=== PATIENT | male | born 1980 | race Caucasian/White ===

== ENCOUNTER 2022-01-16 13:14 | Observation (INO) | payer OTHER ==
[2022-01-16] MEDS ORDERED: LORazepam 2 MG/ML INJ IV STA (13:22)
[2022-01-16] MEDS ORDERED: NITROGLYCERIN OINT 1 INCH/GM PACKET TOPICAL STA (13:24)
--- NOTE | 2022-01-16 13:46 | ED ---
General Adult HPI - General Chief complaint: Chest Pain Stated complaint: Chest Pain Time Seen by Provider: 01/16/22 13:18 Source: patient, EMS, RN notes reviewed Mode of arrival: EMS Limitations: no limitations - History of Present Illness Initial comments: Patient is a pleasant 41-year-old male presenting to the emergency Department with chest pressure and concern for seizures. Patient is trying to get off alcohol and did go [place] today. Last drink was around 9 this morning. Patient has been having some pressure in his chest recently, several days waxing and waning. Discomfort is 4/10 at this time. Minimal associated dyspnea. A martinez has had some nausea however is unclear if this is from withdrawals or from chest discomfort. No diaphoresis. Patient believes she may have had 2 or 3 seizures over the past 10 days. Patient states he has had history of seizures previously with alcohol discontinuation. Patient states sometimes the seizures are just feeling funny and other times he actually loses consciousness. Denies any street drug use. - Related Data Home Medications Medication Instructions Recorded Confirmed Acetaminophen Tab [Tylenol Tab] 500 mg PO Q6H PRN 01/16/22 01/16/22 Famotidine [Pepcid] 20 mg PO BID 01/16/22 01/16/22 Folic Acid 1 mg PO DAILY 01/16/22 01/16/22 Loratadine 10 mg PO DAILY 01/16/22 01/16/22 Pantoprazole [Protonix] 40 mg PO BID 01/16/22 01/16/22 traZODone HCL 150 mg PO HS 01/16/22 01/16/22 Allergies Allergy/AdvReac Type Severity Reaction Status Date / Time No Known Allergies Allergy Verified 01/16/22 13:52 Review of Systems ROS Statement: Those systems with pertinent positive or pertinent negative responses have been documented in the HPI. ROS Other: All systems not noted in ROS Statement are negative. Constitutional: Denies: fever Eyes: Denies: eye pain ENT: Denies: ear pain Respiratory: Reports: as per HPI. Denies: cough Cardiovascular: Reports: as per HPI, chest pain Endocrine: Denies: fatigue Gastrointestinal: Denies: abdominal pain Genitourinary: Denies: dysuria Musculoskeletal: Denies: back pain Skin: Denies: rash Neurological: Reports: as per HPI. Denies: headache, weakness, confusion Past Medical History Past Medical History: GERD/Reflux History of Any Multi-Drug Resistant Organisms: None Reported Past Surgical History: No Surgical Hx Reported Past Psychological History: No Psychological Hx Reported Past Alcohol Use History: Abuse, Daily Past Drug Use History: None Reported General Exam Limitations: no limitations General appearance: alert, in no apparent distress Head exam: Present: atraumatic, normocephalic Eye exam: Present: normal appearance, PERRL, EOMI ENT exam: Present: normal oropharynx Neck exam: Present: normal inspection. Absent: tenderness Respiratory exam: Present: normal lung sounds bilaterally. Absent: chest wall tenderness Cardiovascular Exam: Present: regular rate, normal rhythm Expanded Peripheral pulses: 2+: Radial (R), Radial (L), Posterior Tibialis (R), Posterior Tibialis (L) GI/Abdominal exam: Present: soft. Absent: tenderness Extremities exam: Present: normal inspection. Absent: pedal edema, calf tenderness Neurological exam: Present: alert, oriented X3, CN II-XII intact. Absent: motor sensory deficit Expanded Neurological exam: Present: protecting the airway Speech: Present: fluid speech Cranial nerves: EOM's Intact: Normal Motor strength exam: RUE: 5, LUE: 5, RLE: 5, LLE: 5 Eye Response: (4) open spontaneously Motor Response: (6) obeys commands Verbal Response: (5) oriented Psychiatric exam: Present: normal affect, normal mood Skin exam: Present: normal color Course Vital Signs 01/16/22 13:36 Temperature 98.4 F Pulse Rate 92 Respiratory 16 Rate Blood Pressure 138/92 O2 Sat by Pulse 95 Oximetry EKG Findings - EKG Comments: EKG Findings:: Sinus tachycardia 102. HI 15. QRS 105. QT 346. QTc 405. Normal axis. Normal QRS. Repolarization changes. Medical Decision Making - Medical Decision Making Patient reevaluated and sitting comfortably in bed. Patient updated on results and plan. Case discussed with Dr. Mason, however covering hospital call. - Lab Data Result diagrams: 01/16/22 13:45 01/16/22 13:45 Lab Results 01/16/22 01/16/22 01/16/22 Range/Units 13:45 13:45 13:45 WBC 5.2 (3.8-10.6) k/uL RBC 4.78 (4.30-5.90) m/uL Hgb 16.6 (13.0-17.5) gm/dL Hct 48.3 (39.0-53.0) % MCV 101.1 H (80.0-100.0) fL MCH 34.7 (25.0-35.0) pg MCHC 34.4 (31.0-37.0) g/dL RDW 15.0 (11.5-15.5) % Plt Count 165 (150-450) k/uL MPV 6.7 Neutrophils % 58 % Lymphocytes % 33 % Monocytes % 5 % Eosinophils % 2 % Basophils % 1 % Neutrophils # 3.0 (1.3-7.7) k/uL Lymphocytes # 1.7 (1.0-4.8) k/uL Monocytes # 0.2 (0-1.0) k/uL Eosinophils # 0.1 (0-0.7) k/uL Basophils # 0.1 (0-0.2) k/uL Macrocytosis Slight Sodium 140 (137-145) mmol/L Potassium 4.0 (3.5-5.1) mmol/L Chloride 104 (98-107) mmol/L Carbon Dioxide 24 (22-30) mmol/L Anion Gap 12 mmol/L BUN 9 (9-20) mg/dL Creatinine 0.65 L (0.66-1.25) mg/dL Est GFR (CKD-EPI)AfAm >90 (>60 ml/min/1.73 sqM) Est GFR (CKD-EPI)NonAf >90 (>60 ml/min/1.73 sqM) Glucose 98 (74-99) mg/dL Calcium 8.5 (8.4-10.2) mg/dL Magnesium 1.9 (1.6-2.3) mg/dL Total Bilirubin 0.8 (0.2-1.3) mg/dL AST 283 H (17-59) U/L ALT 103 H (4-49) U/L Alkaline Phosphatase 72 (38-126) U/L Troponin I 0.021 (0.000-0.034) ng/mL Total Protein 7.7 (6.3-8.2) g/dL Albumin 4.6 (3.5-5.0) g/dL Serum Alcohol 275 H* mg/dL Disposition Clinical Impression: Chest pain, Alcohol withdrawal seizure, Alcohol abuse with intoxication Disposition: ADMITTED IP TO THIS HOSP Is patient prescribed a controlled substance at d/c from ED?: No Referrals: Nonstaff,Physician [Primary Care Provider] - 1-2 days Decision Time: 16:52
[2022-01-16 14:09] LABS: Basophils # (A) 0.1 k/uL (0-0.2); Basophils % (A) 1 %; Eosinophils # (A) 0.1 k/uL (0-0.7); Eosinophils % (A) 2 %; HCT 48.3 % (39.0-53.0); HGB 16.6 gm/dL (13.0-17.5); Lymphocytes # (A) 1.7 k/uL (1.0-4.8); Lymphocytes % (A) 33 %; MCH 34.7 pg (25.0-35.0); MCHC 34.4 g/dL (31.0-37.0); MCV 101.1 fL (80.0-100.0); Macrocytosis Slight; Mean Platelet Volume 6.7; Monocytes # (A) 0.2 k/uL (0-1.0); Monocytes % (A) 5 %; Neutrophils % (A) 58 %; Platelet Count 165 k/uL (150-450); RBC 4.78 m/uL (4.30-5.90); WBC 5.2 k/uL (3.8-10.6)
[2022-01-16 14:21] LABS: ALT 103 U/L (4-49); African American GFR (CKD) >90 (>60 ml/min/1.73 sqM); Albumin 4.6 g/dL (3.5-5.0); Anion Gap 12 mmol/L; Blood Urea Nitrogen 9 mg/dL (9-20); Calcium 8.5 mg/dL (8.4-10.2); Carbon Dioxide 24 mmol/L (22-30); Chloride 104 mmol/L (98-107); Glucose 98 mg/dL (74-99); Magnesium 1.9 mg/dL (1.6-2.3); Non-African American GFR(CKD) >90 (>60 ml/min/1.73 sqM); Sodium 140 mmol/L (137-145); Total Bilirubin 0.8 mg/dL (0.2-1.3); Total Protein 7.7 g/dL (6.3-8.2)
[2022-01-16 14:25] LABS: AST 283 U/L (17-59); Alcohol 275 mg/dL; Alkaline Phosphatase 72 U/L (38-126)
--- NOTE | 2022-01-16 16:19 | CT ---
EXAMINATION TYPE: CT brain wo con DATE OF EXAM: 01/16/2022 COMPARISON: None available HISTORY: seizure CT DLP: 1114.4 mGycm. Automated Exposure Control for Dose Reduction was Utilized. TECHNIQUE: CT scan of the head is performed without contrast. FINDINGS: There is no acute intracranial hemorrhage, mass effect, or midline shift identified. The ventricles and sulci are within normal limits in size. The globes are intact and the visualized sin uses are clear. Posterior scalp linear soft tissue thickening, possibly scar, please correlate clinic ally. IMPRESSION: No acute intracranial abnormality or space-occupying lesion by this unenhanced CT scan. If seizures persist, further MRI assessment should be considered.
--- NOTE | 2022-01-16 16:50 | XR ---
EXAMINATION TYPE: XR chest 2V DATE OF EXAM: 01/16/2022 COMPARISON: NONE HISTORY: Chest pain TECHNIQUE: Frontal and lateral views of the chest are obtained. FINDINGS: There is no focal air space opacity, pleural effusion, or pneumothorax seen. The cardiac silhouette size is within normal limits. The osseous structures are intact. IMPRESSION: No acute cardiopulmonary process.
[2022-01-16] MEDS ORDERED: ASPIRIN 81 MG PO STA (16:52)
[2022-01-16] MEDS ORDERED: NITROGLYCERIN SL TABS 0.4 MG TAB SUBLINGUAL PRN (16:52)
[2022-01-16] MEDS ORDERED: THIAMINE 100 MG/ML 2 ML VIAL IM STA (16:53)
[2022-01-16] MEDS ORDERED: LORazepam 2 MG/ML INJ IV PRN ×3 (16:53)
[2022-01-16] MEDS: NITROGLYCERIN OINT 1 INCH/GM PACKET TOPICAL SCH (19:59)
[2022-01-16] MEDS: LORazepam 2 MG/ML INJ IV PRN (20:00)
[2022-01-16] MEDS: METOPROLOL TARTRATE 25 MG TAB PO SCH (20:00)
[2022-01-16 21:48] LABS: Mean Platelet Volume 7.3; Platelet Count 171 k/uL (150-450)
[2022-01-17] MEDS: LORazepam 2 MG/ML INJ IV PRN ×7 (00:24→19:42)
[2022-01-17] MEDS: NITROGLYCERIN OINT 1 INCH/GM PACKET TOPICAL SCH ×2 (00:28→04:45)
--- NOTE | 2022-01-17 07:52 | P.CRDCN ---
History of Present Illness Consult date: 01/17/22 History of present illness: History of Present Illness: The patient is a 41-year-old male with known history of chronic tobacco alcohol intake who is planning to start alcohol rehab at [facility] but has been complaining of chest discomfort for the last few days, the discomfort can last for a few hours. Some of the discomfort is worse with deep breathing. He has n o prior cardiac history. He denies any PND, orthopnea or peripheral edema. He has occasional dizziness but no palpitations or syncope. His alcohol level was elevated on presentation. He had sinus tachycardia initially. He is in sinus mechanism with no malignant arrhythmia. His EKG showed no acute ST segment changes and his troponin are normal. He has a history of chronic tobacco use but no history of drug abuse. He has no history of hypertension, diabetes or hyperlipidemia. Review of Systems: Respiratory: [He has a history of asthma in the past and he has chronic dyspnea on exertion GI: [he had no nausea and vomiting No history of peptic ulcer disease. No recent GI bleed.] : no hematuria or dysuria. Nervous System: no stroke or seizure. Physical Examination: [41-year-old male, alert oriented. Blood pressure 132/80 with a heart rate in the 90s Head: Normocephalic. Eyes: sclerae nonicteric. Neck: good carotid upstroke, no bruit, no jugular venous distention. Lungs: [Scattered rhonchi Heart: Regular rate and rhythm, S1-S2, no S3, no rub. No murmur. Abdomen: soft nontender, positive bowel sounds no organomegaly.Extremities: no edema, intact distal pulses.] Labs: [EKG shows sinus mechanism, rate [address] segment changes and evidence of early repolarization. Troponin less than 0.012, AST 283, ALT 103. Alcohol level of 275 Impression: 1. Chest discomfort, atypical for ischemic heart disease, probably noncardiac 2. [Alcohol intoxication 3. [Chronic tobacco use Plan: 1. Alcohol detox per primary care 2. [Obtain an echocardiogram with Doppler 3. [No evidence to suggest acute ischemic event at this time and no indication for further cardiac workup unless there is segmental wall motion abnormality on the echo 4. [Smoking and alcohol cessation 5. [Thank you for this consult we will follow with you. Past Medical History Past Medical History: GERD/Reflux History of Any Multi-Drug Resistant Organisms: None Reported Past Surgical History: No Surgical Hx Reported Past Psychological History: No Psychological Hx Reported Past Alcohol Use History: Abuse, Daily Past Drug Use History: None Reported Medications and Allergies Home Medications Medication Instructions Recorded Confirmed Type Acetaminophen Tab [Tylenol Tab] 500 mg PO Q6H PRN 01/16/22 01/16/22 History Famotidine [Pepcid] 20 mg PO BID 01/16/22 01/16/22 History Folic Acid 1 mg PO DAILY 01/16/22 01/16/22 History Loratadine 10 mg PO DAILY 01/16/22 01/16/22 History Pantoprazole [Protonix] 40 mg PO BID 01/16/22 01/16/22 History traZODone HCL 150 mg PO HS 01/16/22 01/16/22 History Allergies Allergy/AdvReac Type Severity Reaction Status Date / Time No Known Allergies Allergy Verified 01/16/22 13:52 Physical Exam Vitals: Vital Signs Temp Pulse Pulse Resp BP BP Pulse Ox 01/17/22 07:38 97.9 F 96 17 132/82 97 01/17/22 06:08 88 16 124/76 99 01/17/22 02:32 77 16 103/69 96 01/17/22 01:08 92 18 99/65 95 01/16/22 23:00 90 17 105/70 01/16/22 18:02 85 16 138/62 96 01/16/22 13:36 98.4 F 92 16 138/92 95 Intake and Output 01/16/22 01/17/22 01/17/22 22:59 06:59 14:59 Other: # Voids 0 Results 01/16/22 21:15 01/16/22 13:45 Cardiac Enzymes 01/16/22 01/16/22 01/16/22 Range/Units 13:45 13:45 17:45 AST 283 H (17-59) U/L Troponin I 0.021 <0.012 (0.000-0.034) ng/mL 01/16/22 Range/Units 21:16 AST (17-59) U/L Troponin I <0.012 (0.000-0.034) ng/mL CBC 01/16/22 01/16/22 Range/Units 13:45 21:15 WBC 5.2 (3.8-10.6) k/uL RBC 4.78 (4.30-5.90) m/uL Hgb 16.6 (13.0-17.5) gm/dL Hct 48.3 (39.0-53.0) % Plt Count 165 171 (150-450) k/uL Comprehensive Metabolic Panel 01/16/22 Range/Units 13:45 Sodium 140 (137-145) mmol/L Potassium 4.0 (3.5-5.1) mmol/L Chloride 104 (98-107) mmol/L Carbon Dioxide 24 (22-30) mmol/L BUN 9 (9-20) mg/dL Creatinine 0.65 L (0.66-1.25) mg/dL Glucose 98 (74-99) mg/dL Calcium 8.5 (8.4-10.2) mg/dL AST 283 H (17-59) U/L ALT 103 H (4-49) U/L Alkaline Phosphatase 72 (38-126) U/L Total Protein 7.7 (6.3-8.2) g/dL Albumin 4.6 (3.5-5.0) g/dL Current Medications Generic Name Dose Route Start Last Admin Trade Name Freq PRN Reason Stop Dose Admin Heparin Sodium (Porcine) 5,000 unit 01/16/22 21:00 Heparin Sodium,Porcine/Pf 5,000 Unit/0.5 Ml Syringe SQ Q12HR BENOIT Lorazepam 1 mg 01/16/22 16:53 01/17/22 03:43 Lorazepam 2 Mg/Ml Inj IV 1 mg Q2HR PRN Administration CIWA 8 or 9 Lorazepam 1 mg 01/16/22 16:53 Lorazepam 2 Mg/Ml Inj IV Q1HR PRN CIWA 10 to 15 Lorazepam 2 mg 01/16/22 16:53 Lorazepam 2 Mg/Ml Inj IV 01/18/22 16:53 Q10M PRN CIWA 16 or higher Lorazepam 2 mg 01/16/22 16:53 Lorazepam 2 Mg/Ml Inj IV Q6HR PRN Seizures Metoprolol Tartrate 25 mg 01/16/22 21:00 01/16/22 20:00 Metoprolol Tartrate 25 Mg Tab PO 25 mg BID BENOIT Administration Multivitamins 1 each 01/17/22 09:00 Multivitamins, Thera 1 Each Tab PO DAILY [facility] Nitroglycerin 0.4 mg 02/23/22 16:52 Nitroglycerin Sl Tabs 0.4 Mg Tab SUBLINGUAL Q5M PRN Chest Pain Sodium Chloride 10 ml 01/16/22 21:00 01/17/22 00:27 Sodium Chloride 0.9% Flush 10 Ml Syringe IV 10 ml BID BENOIT Administration Thiamine HCl 100 mg 01/17/22 07:30 Thiamine 100 Mg Tab PO BID-W/MEALS BENOIT Intake and Output 01/16/22 01/17/22 01/17/22 22:59 06:59 14:59 Other: # Voids 0 01/16/22 21:15 01/16/22 13:45
[2022-01-17] MEDS: METOPROLOL TARTRATE 25 MG TAB PO SCH ×2 (07:57→21:28)
[2022-01-17] MEDS: HEPARIN SODIUM,PORCINE/PF 5,000 UNIT/0.5 ML SYRINGE SQ SCH ×3 (07:58→21:28)
[2022-01-17] MEDS: THIAMINE 100 MG TAB PO SCH ×2 (07:59→17:08)
[2022-01-17 08:00] LABS: Amphetamine Screen,Urine Not Detected (NotDetected); Barbiturate Screen,Urine Not Detected (NotDetected); Benzodiazepines Screen,Urine Detected (NotDetected); Cocaine Screen,Urine Not Detected (NotDetected); Methadone Screen, Urine Not Detected (NotDetected); Opiate Screen,Urine Not Detected (NotDetected); Oxycodone Screen, Urine Not Detected (NotDetected); Phencyclidine Screen,Urine Not Detected (NotDetected); Tricyclic Antidepressant,Urine Not Detected (NotDetected); Urn Cannabinoid Scrn Not Detected (NotDetected)
[2022-01-17] MEDS ORDERED: ASPIRIN 81 MG PO SCH (09:00)
[2022-01-17] MEDS ORDERED: MULTIVITAMINS, THERA 1 EACH TAB PO SCH (09:00)
[2022-01-17] MEDS ORDERED: ASPIRIN 325 MG TAB PO SCH (09:00)
[2022-01-17 10:00] LABS: Chol/HDL Ratio 4.03 Ratio; LDL Cholesterol,Calculated 204.7 mg/dL (0.0-131.0)
--- NOTE | 2022-01-17 11:33 | P.HPIM ---
History of Present Illness This is a pleasant 41 years old male with past medical history of GERD He presents because of chest pain. Patient was sent from [place] for chest pain. Patient describes the pain as central 60/10, nonradiating thick like pres sure, he has some difficulty breathing at that time but not currently. Associated with some dizziness about the blackout and he vomited once. No coughing, He states 2 days ago he had a seizure and another one like one week ago, although he was drinking alcohol 2 days ago. He is living with his girlfriend and son and suddenly his sats having shakiness which lasted about 4-5 minutes after that he was confused as he describes. Patient is not on any seizure medication at home. He denies any urinary complaints, no abdominal pain. He denies depression, no helplessness/hopelessness, denies hallucination or delusions. No suicidal or homicidal ideation. He smokes about 1 pack per day and he was counseled to quit and he agrees and he wants the nicotine patch. No alcohol or illicit drugs. He has also some diarrhea about 4-5 times a day but there is no blood. No dysuria or urgency. On the presentation was slightly hypotensive 99/65, currently his blood pressure is stable 132/82. Labs show an unremarkable CBC, BMP. Liver enzymes is elevated to 283 AST and 103 ALT Troponins 3 are negative less than 0.012. Urine drug screen is positive for benzodiazepines Alcohol level is elevated 275. wiley virus non detected CXR: No Acute process. CT of the brain no acute intracranial abnormality or space-occupying lesion. In the emergency room and received Ativan, aspirin and thiamine, he was placed on CIWA protocol [facility] team were consulted Review of Systems CONSTITUTIONAL: No fever, no malaise, no fatigue. HEENT: No recent visual problems or hearing problems. Denied any sore throat. CARDIOVASCULAR: No orthopnea, PND, no palpitations, no syncope. PULMONARY: No shortness of breath, no cough, no hemoptysis. GASTROINTESTINAL: no nausea, no vomiting, Normoactive bowel sounds. NEUROLOGICAL: No headaches, no weakness, no numbness. HEMATOLOGICAL: Denies any bleeding or petechiae. GENITOURINARY: Denies any burning micturition, frequency, or urgency. MUSCULOSKELETAL/RHEUMATOLOGICAL: Denies any joint pain, swelling, or any muscle pain. ENDOCRINE: Denies any polyuria or polydipsia. Past Medical History Past Medical History: GERD/Reflux History of Any Multi-Drug Resistant Organisms: None Reported Past Surgical History: No Surgical Hx Reported Past Psychological History: No Psychological Hx Reported Past Alcohol Use History: Abuse, Daily Past Drug Use History: None Reported Medications and Allergies Home Medications Medication Instructions Recorded Confirmed Type Acetaminophen Tab [Tylenol Tab] 500 mg PO Q6H PRN 01/16/22 01/16/22 History Famotidine [Pepcid] 20 mg PO BID 01/16/22 01/16/22 History Folic Acid 1 mg PO DAILY 01/16/22 01/16/22 History Loratadine 10 mg PO DAILY 01/16/22 01/16/22 History Pantoprazole [Protonix] 40 mg PO BID 01/16/22 01/16/22 History traZODone HCL 150 mg PO HS 01/16/22 01/16/22 History Allergies Allergy/AdvReac Type Severity Reaction Status Date / Time No Known Allergies Allergy Verified 01/16/22 13:52 Physical Exam Vitals: Vital Signs Temp Pulse Pulse Resp BP BP Pulse Ox 01/17/22 07:38 97.9 F 96 17 132/82 97 01/17/22 06:08 88 16 124/76 99 01/17/22 02:32 77 16 103/69 96 01/17/22 01:08 92 18 99/65 95 01/16/22 23:00 90 17 105/70 01/16/22 18:02 85 16 138/62 96 01/16/22 13:36 98.4 F 92 16 138/92 95 Intake and Output 01/16/22 01/17/22 01/17/22 22:59 06:59 14:59 Other: # Voids 0 GENERAL: The patient is alert and oriented x3, not in any acute distress. Well developed, well nourished. HEENT: Pupils are round and equally reacting to light. EOMI. No scleral icterus. No conjunctival pallor. Normocephalic, atraumatic. No pharyngeal erythema. No thyromegaly. CARDIOVASCULAR: S1 and S2 present. No murmurs, rubs, or gallops. PULMONARY: Chest is clear to auscultation, no wheezing or crackles. ABDOMEN: Soft, nontender, nondistended, normoactive bowel sounds. No palpable organomegaly. MUSCULOSKELETAL: No joint swelling or deformity. EXTREMITIES: No cyanosis, clubbing, or pedal edema. NEUROLOGICAL: Gross neurological examination did not reveal any focal deficits. SKIN: No rashes. No petechiae Results CBC & Chem 7: 01/16/22 21:15 01/16/22 13:45 Labs: Abnormal Lab Results - Last 24 Hours (Table) 01/16/22 01/16/22 01/17/22 Range/Units 13:45 13:45 07:00 MCV 101.1 H (80.0-100.0) fL Creatinine 0.65 L (0.66-1.25) mg/dL AST 283 H (17-59) U/L ALT 103 H (4-49) U/L U Benzodiazepines Scrn Detected H (NotDetected) Serum Alcohol 275 H* mg/dL Assessment and Plan Assessment: Chest pain, rule out cardiac causes Chest seizure 2 days ago and one week prior to admission Alcohol abuse at risk of withdrawal Diarrhea most likely reactive gastroenteritis, could be also related to alcohol abuse History of GERD Elevated liver enzymes, with AST more than twice ALT consistent with alcoholic transaminitis Plan: This is a pleasant 89 male who presents with chest pain and possible seizure Follow-up editor trade journal recommendation Continue with CIWA protocol and thiamine Neurology consult for possible seizure Labs and medication were reviewed.. Continue same treatment. Continue with symptomatic treatment. Resume home medication. Monitor lytes and vitals. DVT and GI prophylaxis. Further recommendations depends on the clinical course of the patient DVT prophylaxis: Subcutaneous heparin GI Prophylaxis: Pepcid PT/OT: Pending Prognosis is guarded
--- NOTE | 2022-01-17 11:55 | ECHOF ---
Referral Reason:cp MEASUREMENTS -------- HEIGHT: 167.6 cm WEIGHT: 76.2 kg BP: 132/82 RVIDd: 3.2 cm (< 3.3) IVSd: 1.0 cm (0.6 - 1.1) LVIDd: 4.9 cm (3.9 - 5.3) LVPWd: 1.1 cm (0.6 - 1.1) IVSs: 1.6 cm LVIDs: 3.0 cm LVPWs: 1.7 cm LA Diam: 3.5 cm (2.7 - 3.8) LAESV Index (A-L): 18.25 ml/m Ao Diam: 3.1 cm (2.0 - 3.7) AV Cusp: 2.2 cm (1.5 - 2.6) MV EXCURSION: 10.847 mm (> 18.000) MV EF SLOPE: 76 mm/s (70 - 150) EPSS: 0.4 cm MV E Faustino: 0.81 m/s MV DecT: 163 ms MV A Faustino: 0.93 m/s MV E/A Ratio: 0.88 FINDINGS -------- Sinus rhythm. This was a technically good study. The left ventricular size is normal. Left ventricular wall thickness is normal. Overall left vent ricular systolic function is normal with, an EF between 60 - 65 %. The diastolic filling pattern is normal for the age of the patient 9.24. The right ventricle is normal in size. Normal LA size by volume 22+/-6 ml/m2. The right atrium is normal in size. Interatrial and interventricular septum intact. The aortic valve is trileaflet, and appears structurally normal. No aortic stenosis or regurgitation. The mitral valve is normal. There is trace mitral regurgitation. The tricuspid valve appears structurally normal. Trace tricuspid regurgitation present. There is no pulmonic regurgitation present. The aortic root size is normal. Normal inferior vena cava with normal inspiratory collapse consistent with estimated right atrial pre ssure of 5 mmHg. There is no pericardial effusion. CONCLUSIONS -------- 1. Left ventricular wall thickness is normal. 2. Overall left ventricular systolic function is normal with, an EF between 60 - 65 %. 3. The aortic valve is trileaflet, and appears structurally normal. No aortic stenosis or regurgitati on. 4. There is trace mitral regurgitation. 5. Trace tricuspid regurgitation present. 6. There is no pericardial effusion. HORSES OR MULES TEAMSTER: ANDREWS Veronica
[2022-01-17] MEDS: SODIUM CHLORIDE 0.9% 1,000 ML IV SCH (16:16)
[2022-01-17] MEDS ORDERED: LOPERAMIDE 2 MG CAP PO PRN (23:42)
[2022-01-18] MEDS: LORazepam 2 MG/ML INJ IV PRN ×2 (00:27→04:32)
--- NOTE | 2022-01-18 00:51 | P.CNNES ---
History of Present Illness Consult date: 01/17/22 Requesting physician: Cristi Dinh Reason for Consult: Seizure History of Present Illness: Patient is a 41-year-old male came to the hospital yesterday at 1:14 PM. The patient states that 2 weeks ago he started having chest pain, couldn't breathe. He checked his blood pressure was high, and heart rate was increased. He felt will stroke out. He felt like a weight sitting on the chest. When he was laying down, and tried to get up, feels dizzy and as if a blackout. Patient states that his girlfriend has noted 3 seizures in the last 2-1/2 weeks. She states that he was signing a paper at [place]-he started shaking, felt legs started shaking, then arms and chest started shaking and he couldn't move his m outh. He then lost control of the body and started shaking. The last episode was about 5 days ago. Patient states he has history of seizures in 2014, when he was trying to come off alcohol. He denies any drugs. He does smoke 1 pack per day since age 13. He also drinks a fifth or more of vodka which he started at age 14. He still drinks alcohol although recently has quit. Denies any crack cocaine. He states that 2 days into his detox, he started feeling pins and needles sensation in the legs. Vital signs on arrival blood pressure 138/92%" of vision at 8.4.. Blood test shows normal CBC with elevated MCV 101.7. Chem-7 normal. AST elevated 283, and ALT 103. Troponin negative. Cholesterol 302, LDL 204, HDL 74 and triglycerides 112. Blood ankle level was 275. Carr virus PCR negative. CT head showed no acute intracranial abnormality or space occupying lesion by this unenhanced computed tomography scan. EKG shows sinus tachycardia. 2-D echo revealed normal left ventricular wall thickness. EF between 60-65%. Aortic valve is normal. He lives with his girlfriend. Review of Systems Complains of memory disturbance. As per mentioned in HPI. All other 14 point review of systems reviewed unremarkable. Past Medical History Past Medical History: GERD/Reflux History of Any Multi-Drug Resistant Organisms: None Reported Past Surgical History: No Surgical Hx Reported Additional Past Surgical History / Comment(s): ruptured spleen Past Anesthesia/Blood Transfusion Reactions: No Reported Reaction Past Psychological History: No Psychological Hx Reported Past Alcohol Use History: Abuse, Daily Past Drug Use History: None Reported Medications and Allergies Home Medications Medication Instructions Recorded Confirmed Type Acetaminophen Tab [Tylenol Tab] 500 mg PO Q6H PRN 01/16/22 01/16/22 History Famotidine [Pepcid] 20 mg PO BID 01/16/22 01/16/22 History Folic Acid 1 mg PO DAILY 01/16/22 01/16/22 History Loratadine 10 mg PO DAILY 01/16/22 01/16/22 History Pantoprazole [Protonix] 40 mg PO BID 01/16/22 01/16/22 History traZODone HCL 150 mg PO HS 01/16/22 01/16/22 History Allergies Allergy/AdvReac Type Severity Reaction Status Date / Time No Known Allergies Allergy Verified 01/16/22 13:52 Physical Examination - Vital Signs Vital Signs: Vital Signs Temp Pulse Pulse Resp BP BP Pulse Ox 01/17/22 07:38 97.9 F 96 17 132/82 97 01/17/22 06:08 88 16 124/76 99 01/17/22 02:32 77 16 103/69 96 01/17/22 01:08 92 18 99/65 95 01/16/22 23:00 90 17 105/70 01/16/22 18:02 85 16 138/62 96 01/16/22 13:36 98.4 F 92 16 138/92 95 Intake and Output 01/16/22 01/17/22 01/17/22 22:59 06:59 14:59 Other: # Voids 0 Weight 76.204 kg Patient is a middle aged male, in no acute distress. Patient is alert awake oriented to time place and person. Speech talked with some slurring, although when he speaks loudly, it is more clear. His language functions are normal. Attention, concentration and fund of knowledge is adequate. Detailed testing deferred. On cranial examination, pupils are round and reacting to light, visual avery are full on confrontation, extraocular muscles are intact with no nystagmus. Face is symmetric, tongue protrudes to the midline. Palatal elevation and sensation normal, hearing and shoulder shrug normal, facial sensation normal. Shoulder shrug normal. On muscle strength testing, there is no pronator drift and the strength is normal in arms and legs distally and proximally. Deep tendon reflexes are 1+ in the upper and lower limbs and plantars are downgoing. Sensory to touch is equal with no neglect. Cerebellar function showed no ataxia although he is shaky for [id number]-[id number]-avda testing bilaterally. He also has [id number] shaking of the outstretched hands. No dysdiadochokinesia. Tone and bulk of muscles normal. Gait deferred. On general examination, there is no carotid bruit or murmur, S1-S2 audible. Abdomen is soft nontender. No organomegaly. Bowel sounds present. Chest is clear. Peripheral pulses are present. No edema. Results - Laboratory Findings CBC and BMP: 01/16/22 21:15 01/16/22 13:45 Abnormal Lab Findings: Abnormal Labs 01/16/22 01/16/22 01/17/22 13:45 13:45 05:17 MCV 101.1 H Creatinine 0.65 L AST 283 H ALT 103 H Cholesterol 302.00 H LDL Cholesterol, Calc 204.7 H HDL Cholesterol 74.90 H U Benzodiazepines Scrn Serum Alcohol 275 H* 01/17/22 07:00 MCV Creatinine AST ALT Cholesterol LDL Cholesterol, Calc HDL Cholesterol U Benzodiazepines Scrn Detected H Serum Alcohol Assessment and Plan Assessment: * Seizure, probable due to alcohol withdrawal. * Chronic alcoholism, recently trying detox. * Chronic tobacco use Plan: * EEG was performed. Showed no epileptiform activity. No indication for antiepileptic medication. * Patient informed of [place] state law of no driving unless seizure free for 6 months, climbing ladders, operating dangerous machinery or unsupervised swimming. * Patient recommended abstinence from alcohol, and tobacco. * Continue thiamine, folate, multivitamins. Watch for alcohol withdrawals. * No other neurological workup indicated. * Neurologically clear. Thank you for the consult.
[2022-01-18] MEDS: SODIUM CHLORIDE 0.9% 1,000 ML IV SCH (03:31)
--- NOTE | 2022-01-18 04:41 | EEG ---
ELECTROENCEPHALOGRAM REPORT DATE OF SERVICE: January 17, 2022 PREAMBLE: This is a 41-year-old male with history of alcoholism, has possible seizures. EEG FINDINGS: This is a 21 channel routine EEG recording in a patient utilizing 10/20 international system with referential and bipolar montages. The background consists of very low voltage activity in mixed alpha and theta range seen in bihemispheric region. Background seems to be minimally reactive to eye opening and closing. Photic driving response was not seen. Different stages of sleep were not seen. No focal or generalized epileptiform activity was seen. The EKG channel showed no obvious arrhythmia. IMPRESSION: This is a borderline abnormal EEG due to diffuse low voltage activity with mild background slowing. This is suggestive of generalized cerebral dysfunction, as can be seen with encephalopathy or medication effect. No epileptiform activity was seen. MMODL / IJN: [id number] /
[2022-01-18 08:30] VITALS: BP 127/88; PULSE 83; RESP 16; TEMP 98.2
[2022-01-18] MEDS ORDERED: FAMOTIDINE 20 MG/2 ML VIAL IV SCH (09:00)
[2022-01-18 09:42] LABS: Basophils # (A) 0.07 X 10*3/uL (0.00-0.10); Eosinophils # (A) 0.19 X 10*3/uL (0.04-0.35); Eosinophils % (A) 2.7 %; HCT 47.5 % (39.6-50.0); HGB 15.6 g/dL (13.0-17.0); Immature Grans, Automated 0.3 %; Lymphocytes # (A) 2.45 X 10*3/uL (0.90-5.00); MCH 32.6 pg (27.0-32.0); MCHC 32.8 g/dL (32.0-37.0); MCV 99.2 fL (80.0-97.0); Mean Platelet Volume 10.7 fL (9.5-12.2); Monocytes # (A) 0.65 X 10*3/uL (0.20-1.00); Monocytes % (A) 9.3 %; NRBC Per 100 WBC 0 /100 WBCS (0.0-0.0); Neutrophils # (A) 3.63 X 10*3/uL (1.80-7.70); Neutrophils % (A) 51.7 %; Platelet Count 142 X 10*3/uL (140-440); RBC 4.79 X 10*6/uL (4.40-5.60); RDW 13.3 % (11.5-14.5); WBC 7.01 X 10*3/uL (4.50-10.00)
[2022-01-18 10:03] LABS: African American GFR (CKD) 128.6 (60.0-200.0); Albumin 4.6 g/dL (3.8-4.9); Anion Gap 13.6 mmol/L (10.00-18.00); Blood Urea Nitrogen 7.2 mg/dL (9.0-27.0); Calcium 9.2 mg/dL (8.7-10.3); Carbon Dioxide 22.4 mmol/L (20.0-27.5); Globulin 2.3 g/dL (1.6-3.3); Magnesium 1.6 mg/dL (1.5-2.4); Potassium 3.9 mmol/L (3.5-5.5); Total Protein 6.9 g/dL (6.2-8.2)
--- NOTE | 2022-01-26 14:14 | P.DS ---
Providers Date of admission: 01/16/22 16:52 Attending physician: Hamida Arambula Consults: 01/16/22 16:52 Consult Physician Urgent Consulting Provider: Didi Ibrahim Consult Reason/Comments: cp Do you want consulting provider notified?: Yes 01/17/22 10:59 Consult Physician Urgent Consulting Provider: Leticia Perea Consult Reason/Comments: Seizure Do you want consulting provider notified?: Yes Primary care physician: Physician Nonstaff Hospital Course: Please note patient was not discharged but left AMA Patient has capacity to make medical decision upon my evaluation. After initial evaluation in the emergency room patient decided to leave AMA before I have a chance to see him or talk to him. Patient left AMA. Please refer to nurses notes and my H&P for more details Plan - Discharge Summary New Discharge Prescriptions: No Action Pantoprazole [Protonix] 40 mg PO BID Folic Acid 1 mg PO DAILY Famotidine [Pepcid] 20 mg PO BID Loratadine 10 mg PO DAILY Acetaminophen Tab [Tylenol Tab] 500 mg PO Q6H PRN PRN Reason: Fever And/ Or Pain traZODone HCL 150 mg PO HS Discharge Medication List Acetaminophen Tab [Tylenol Tab] 500 mg PO Q6H PRN 01/16/22 [History] Famotidine [Pepcid] 20 mg PO BID 01/16/22 [History] Folic Acid 1 mg PO DAILY 01/16/22 [History] Loratadine 10 mg PO DAILY 01/16/22 [History] Pantoprazole [Protonix] 40 mg PO BID 01/16/22 [History] traZODone HCL 150 mg PO HS 01/16/22 [History] Follow up Appointment(s)/Referral(s): Nonstaff,Physician [Primary Care Provider] - 1-2 days Discharge Disposition: Left Against Medical Advice
== END 2022-01-18 08:57 | disposition left against medical advice (07) ==
LOC: EC 13:14 → 6NMEDSUR 16:52
PROVIDERS: ADMIT Internal Medicine; ATTEND Internal Medicine
DX: R07.89 Other chest pain (principal); F10.239 Alcohol dependence with withdrawal, unspecified; F10.229 Alcohol dependence with intoxication, unspecified; Z20.822 Contact with and (suspected) exposure to COVID-19; I95.9 Hypotension, unspecified; F17.210 Nicotine dependence, cigarettes, uncomplicated; R19.7 Diarrhea, unspecified; R56.9 Unspecified convulsions; Z53.29 Procedure and treatment not carried out because of patient's decision for other reasons; K21.9 Gastro-esophageal reflux disease without esophagitis; Y90.8 Blood alcohol level of 240 mg/100 ml or more; R74.8 Abnormal levels of other serum enzymes; Z79.899 Other long term (current) drug therapy; Z87.828 Personal history of other (healed) physical injury and trauma; Z71.41 Alcohol abuse counseling and surveillance of alcoholic; Z71.6 Tobacco abuse counseling
CPT/HCPCS: 99285; 96376 ×3; 96372 ×2; 96374; 36415; 95816; 93005; 93306; 80061; 80053 ×2; 83735 ×2; 84484; 85025 ×2; 85049; 87324; 80306; 87635; 71046; 70450; G0378 ×3; G0480; J2060 ×3; J3411; J1644; 80320